=== PATIENT | female | born 1985 | race Caucasian/White ===

== ENCOUNTER 2016-09-09 11:16 | Emergency (ER) | payer OTHER ==
[~2016-09-09] VITALS: Ht 175.3 cm; Wt 113.4 kg
[~2016-09-09 11:16] MED LIST: METFORMIN HCL500 M3 PO; YASMIN 28 TABL1 EACH PO
--- NOTE | 2016-09-09 11:27 | ED NECK/BACK PAIN COMPLAINT ---
History of Present Illness General Chief Complaint: Low Back Pain/Injury Stated Complaint: LOWER BACK PAIN, X 3DAYS Vital Signs & Intake/Output Vital Signs & Intake/Output Vital Signs Date Time Temp Pulse Resp B/P Pulse O2 O2 Flow FiO2 Ox Delivery Rate 09/09 1123 97.3 97 20 122/82 97 Room Air Allergies Coded Allergies: shellfish derived (Severe, THROAT CLOSING 09/09/16) amoxicillin (Intermediate, HIVES 09/09/16) Reconcile Medications Ethinyl Estradiol/Drospirenone ([place] 28 Tablet) 1 EACH TABLET 1 TAB PO DAILY CONTROL (Reported) Metformin HCl 500 MG TABLET 1 TAB PO BID DIABETES (Reported) Triage Note: TRIAGE: PT TO ER C/C PAIN TO R/L LOW BACK. ONSET SATURDAY. CONSTANT SINCE ONSET. WAS SEEN AT [facility] YESTERDAY AND WAS GIVEN BACTRIM AND SKELAXIN. STATES PAIN IS WORSE TODAY. 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
--- NOTE | 2016-09-09 11:31 | ED NECK/BACK PAIN COMPLAINT ---
History of Present Illness General Chief Complaint: Low Back Pain/Injury Stated Complaint: LOWER BACK PAIN, X 3DAYS Source: patient, old records Exam Limitations: no limitations Vital Signs & Intake/Output Vital Signs & Intake/Output Vital Signs Date Time Temp Pulse Resp B/P Pulse O2 O2 Flow FiO2 Ox Delivery Rate 09/09 1319 98.0 89 14 124/74 100 Room Air 09/09 1238 99 Room Air ED Intake and Output 09/10 0000 09/09 1200 Intake Total 100 Output Total Balance 100 Intake, Oral 100 Patient 250 lb Weight Allergies Coded Allergies: shellfish derived (Severe, THROAT CLOSING 09/09/16) amoxicillin (Intermediate, HIVES 09/09/16) Reconcile Medications Cyclobenzaprine HCl 5 MG TABLET 1 TAB PO TIDPRN PRN pain Ethinyl Estradiol/Drospirenone ([place] 28 Tablet) 1 EACH TABLET 1 TAB PO DAILY CONTROL (Reported) Metformin HCl 500 MG TABLET 1 TAB PO BID DIABETES (Reported) Tylenol With Codeine (Tylenol With Codeine #3 Tablet) 300 MG-30 MG TABLET 1 TAB PO QHS PRN pain Triage Note: TRIAGE: PT TO ER C/C PAIN TO R/L LOW BACK. ONSET SATURDAY. CONSTANT SINCE ONSET. WAS SEEN AT [facility] YESTERDAY AND WAS GIVEN BACTRIM AND SKELAXIN. STATES PAIN IS WORSE TODAY. Triage Nurses Notes Reviewed? yes Onset: Gradual Duration: day(s): (3), intermittent Timing: recent history Quality/Severity: mild, moderate, aching Location: paraspinous muscles Radiation: none Method of Injury: unknown Loss of Consciousness: no loss of consciousness Modifying Factors: movement, rest Associated Symptoms: denies : No Patient currently breastfeeds: No HPI: 31-year-old female history of diabetes presents emergency room complaining of a 3 day history of sudden onset bilateral left greater than right lower back pain sharp 6 out of 10. She states the pain is worse with change in position. The pain is nonradiating she denies any numbness or tingling in her legs. No abdominal pain. The patient was seen by an urgent care yesterday at which time they diagnosed her with a kidney infection. She was sent home with Bactrim and Skelaxin. The patient states that she has had frequent urinary and kidney infections in the past and that this does not feel similar. There is no recent trauma or fall. No urinary or bowel incontinence patient denies chance of . Her last menstrual cycle was 3 weeks ago. The patient states she took one dose of the Skelaxin last night. She is not taken any Tylenol or Motrin for pain. (NEFTALI DE LEON) Past History Travel History Traveled to [place] past 21 day No Medical History Any Pertinent Medical History? 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 No (NEFTALI DE LEON) Review of Systems Review of Systems Constitutional: Reports: see HPI. All Other Systems: Reviewed and Negative Comments Review of systems: See HPI, All other systems negative. Constitutional, no chills no fever, no malaise HEENT: no sore throat no congestion, no ear pain Cardiovascular: No chest pain , no palpitation Skin, no rashes, no change in skin Respiratory: No dyspnea no cough no sputum GI: No nausea no vomiting, no diarrhea, no bloating/constipation : No dysuria No hematuria, no frequency Muscle skeletal: No joint pain, no joint swelling, back pain, no neck pain, Neurologic: No numbness no headache Psych: No stress Heme/endocrine: No bruising no bleeding Immunology: No lymphadenopathy (NEFTALI DE LEON) Physical Exam Physical Exam General Appearance: well developed/nourished, no apparent distress, alert, awake , comfortable Neck: normal inspection, supple, full range of motion Comments: Well-developed well-nourished person in no acute distress HEENT: Normal EENT exam; PERRL, EOMI, HEAD is atraumatic. moist mucous membranes. Neck: Supple, normal range of motion without pain or tenderness Back: There is left-sided paralumbar muscle tenderness palpation no midline tenderness, no CVA tenderness. Full range of motion Cardiovascular: Regular rate and rhythms no murmurs rubs Respiratory: No respiratory distress. Patient speaking in full complete sentences. Breath sounds clear to auscultation bilaterally: NO W/R/R Abdomen: Soft, nontender nondistended, no appreciable organomegaly. Normal bowel sounds. No rebound/guarding, Extremity: No edema, full range of motion of extremities, 5 out of 5 strength noted to bilateral upper and lower extremities positive straight leg raise the left lower extremity Neuro: Alert oriented x3, motor sensory normal, There were no obvious focal neurologic abnormalities. Skin: No appreciable rash on exposed skin, skin is warm and dry. Psych: Mood and affect is normal, memory and judgment is normal. (NEFTALI DE LEON) Progress Differential Diagnosis: cauda equina syn, herniated disc, myofascial strain, pyelo/UTI, sciatica, spinal cord inj, T/L spine injury, ureterolithiasis, , ECTOPIC Plan of Care: Laboratory Tests 09/09/16 1226: Urinalysis LIGHT H, Urine Color YEL, Urine Clarity HAZY H, Urine pH 6.0, Ur Specific [place] >= 1.030, Urine Protein NEG, Urine Ketones NEG, Urine Nitrite NEG, Urine Bilirubin NEG, Urine Urobilinogen 0.2, Ur Leukocyte Esterase MOD H, Ur Microscopic SEDIMENT EXAMINED, Urine RBC RARE, Urine WBC 25-50 H, Ur Epithelial Cells MOD H, Urine Bacteria MANY H, Urine Mucus FEW, Urine Hemoglobin TRACE-INTACT, Urine Glucose NEG, Urine Test NEGATIVE Discussed the patient plan of care need for supportive care rest heating pad prescription for Tylenol with Codeine Flexeril provided. I discussed the patient the side effects of these medications and to take these only at nighttime as needed as these will make her drowsy advised ibuprofen Tylenol during the day follow-up with her primary care physician this week patient clinically appears well I answered all their questions a comfortable plan cleared for discharge (NEFTALI DE LEON) Departure Departure Disposition: HOME OR SELF CARE Condition: Stable Clinical Impression Primary Impression: Lumbar strain Referrals: CLIVE ORTIZ,DUDLEY Perdomo Additional Instructions: Rest interchange ice and heat as needed. Interchange ibuprofen and Tylenol during the day for pain every 4-6 hours. Tylenol with Codeine Flexeril as needed for breakthrough pain, use caution as these medications make you drowsy. No driving or drinking alcohol while taking. These prescriptions were sent to your pharmacy Departure Forms: Customer Survey General Discharge Information Prescriptions: Current Visit Scripts Tylenol With Codeine (Tylenol With Codeine #3 Tablet) 1 TAB PO QHS PRN pain #7 TAB Cyclobenzaprine HCl 1 TAB PO TIDPRN PRN pain #12 TAB (NEFTALI DE LEON) PA/ADJUNCT TRAINER Co-Sign Statement Statement: ED Attending supervision documentation- [] I saw and evaluated the patient. I have also reviewed all the pertinent lab results and diagnostic results. I agree with the findings and the plan of care as documented in the PA's/ADJUNCT TRAINER's documentation. [X] I have reviewed the ED Record and agree with the PA's/ADJUNCT TRAINER's documentation. [] Additions or exceptions (if any) to the PAs/ADJUNCT TRAINER's note and plan are summarized below: [] (LETTY ORTIZ,BOYD)
[2016-09-09] MEDS ORDERED: TYLENOL WITH C1 EACH PO (13:05)
[2016-09-09] MEDS ORDERED: CYCLOBENZAPRINE5 M2 PO (13:05)
[2016-09-09 13:19] VITALS: BP 124/74
== END 2016-09-09 13:20 ==
LOC: ERH 11:16
DX: S39.012A Strain of muscle, fascia and tendon of lower back, initial encounter (principal); X58.XXXA Exposure to other specified factors, initial encounter
CPT/HCPCS: 81001; 81025

== ENCOUNTER 2016-09-28 12:45 | Emergency (ER) | payer OTHER ==
[~2016-09-28] VITALS: Ht 175.3 cm; Wt 111.6 kg
[~2016-09-28 12:45] MED LIST changes: +CYCLOBENZAPRINE5 M2 PO; +TYLENOL WITH C1 EACH PO
--- NOTE | 2016-09-28 13:33 | ED GI/GU/ABDOMINAL COMPLAINT ---
History of Present Illness General Chief Complaint: Abdominal Pain/Flank Pain Stated Complaint: R SIDE ABD PAIN, R/O APPENDICITIS Source: patient Exam Limitations: no limitations Vital Signs & Intake/Output Vital Signs & Intake/Output Vital Signs Date Time Temp Pulse Resp B/P Pulse O2 O2 Flow FiO2 Ox Delivery Rate 09/28 1732 100 Room Air 09/28 1519 97.9 74 20 128/74 98 Room Air 09/28 1252 97.6 88 18 136/92 98 Room Air Allergies Coded Allergies: shellfish derived (Severe, THROAT CLOSING 09/09/16) amoxicillin (Intermediate, HIVES 09/09/16) oxycodone (GI DISTRESS 09/28/16) Reconcile Medications Ethinyl Estradiol/Drospirenone ([place] 28 Tablet) 0.03 MG-3 MG TABLET 1 TAB PO QPM BC (Reported) Metformin HCl 500 MG TABLET 1 TAB PO BID DIABETES (Reported) Metronidazole 500 MG TABLET 1 TAB PO BID ANTIBIOTIC, INFECTION (Reported) Triage Note: 31 YEAR OLD FEMALE SENT TO ER BY HER PMD DUE TO COMPLAINTS OF RUQ ABD PAIN THAT STARTED LAST PM AND LOW PELVIC PRESSURE AND LOW BACK PAIN FOR THE PAST WEEK. WAS SEEN BY OB YESTERDAY AND WAS TOLD THAT SHE HAD CYST ON HER OVARIES AFTER SHE HAD VAGINAL US. ALSO STATES THAT SHE HAS BEEN ON FLAGYL SINCE LAST SATURDAY FOR VAGINAL BACTERIAL INFECTION SINCE LAST SATURDAY. LMP WAS 3 WEEKS AGO, STATES THAT SHE ALSO HAS BEEN HAVING URINARY SYMPTOMS, STATES THAT SHE HAS PRESSURE AFTER SHE URINATES, URINE IS DARK AND HAS A LOT OF BACK PAIN. Triage Nurses Notes Reviewed? yes ? N Is pt currently ? No HPI: This patient is a 31-year-old female with past medical history including diabetes and PCOS who presented to the emergency department today for evaluation of lower abdominal pain. The patient reported that she was seen here in the emergency department approximately 3 weeks ago with back pain and urinary symptoms. She was started on a 3 day course of Bactrim and then followed up with her primary care physician who put her on prednisone for her back pain. She developed pelvic pain shortly after and saw her PROFILE SHAPER OPERATOR who diagnosed her with bacterial vaginosis. She was put on Flagyl, her last dose is scheduled for tomorrow. The patient reported that she has continued to have some mild pelvic pain and her urinary symptoms seemed to be worsening again. She reported urinary frequency, the sensation of not emptying her bladder fully, and dark brown urine. She denied any burning. She reported that she is having increasing lower back pain. She saw a new PROFILE SHAPER OPERATOR who recently did an ultrasound and told her that her ovarian cysts seemed to be, "crystallizing." She is currently on control. The patient reported that she saw her primary care physician this morning and elicited pain in her right lower quadrant with palpation. She denied any pain when she is sitting still. She denied any nausea or vomiting. No constipation or diarrhea. She denied any chills. She did report a fever as high as 100.3F over the last couple of days. Patient reported that her daughter him a "fell on my stomach last night." She reported that after that time that is when she started to have abdominal pain. (ALIVIA RUIZ PA-C) Past History Travel History Traveled to [place] past 21 day No Medical History Any Pertinent Medical History? 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 No (ALIVIA RUIZ PA-C) Review of Systems Review of Systems Constitutional: Reports: see HPI. EENTM: Reports: no symptoms. Respiratory: Reports: no symptoms. Cardiovascular: Reports: no symptoms. GI: Reports: see HPI. Genitourinary: Reports: see HPI. Musculoskeletal: Reports: see HPI. Skin: Reports: no symptoms. Neurological/Psychological: Reports: no symptoms. All Other Systems: Reviewed and Negative (ALIVIA RUIZ PA-C) Physical Exam Physical Exam Gastrointestinal: normal bowel sounds, soft, no organomegaly, nondistended. Obese. Tenderness to palpation in the right lower quadrant. Negative Rovsing sign negative psoas sign. Negative Weaver sign. No rebound or guarding. No masses appreciated Comments: Well-developed well-nourished person in no acute distress HEENT: Normal EENT exam, head normocephalic, moist mucous membranes Neck: Supple with no lymphadenopathy Back: Normal gait. Normal inspection. Bilateral CVA tenderness. No midline tenderness Cardiovascular: Regular rate and rhythm with no murmurs, rubs, or gallops Respiratory: No respiratory distress. Speaking in full sentences Extremity: Normal and equal pulses Neuro: Alert oriented x3, motor sensory normal, cranial nerves II through XII grossly intact. Skin: No appreciable rash on exposed skin, skin is warm and dry. Psych: Mood and affect is normal, memory and judgment is normal. Core Measures ACS in differential dx? No Severe Sepsis Present: No Septic Shock Present: No (JOSEPH DOMINGO,ALIVIA) Progress Differential Diagnosis: AAA, AMI, appendicitis, biliary colic, bowel obstruction , colon cancer, cholecystitis, diverticulitis, ectopic , endometritis, gastritis, hepatitis, ischemic bowel, inflamm bowel dis, intrauterine , kidney stone, ovarian cyst, ovarian torsion, PID/cervicitis, perforated viscous, threatened AB, UTI/pyelo, PCOS Plan of Care: Orders Procedure Date/time Status CULTURE,URINE 09/28 1333 Active URINE 09/28 1333 Complete LIPASE 09/28 1333 Complete HIGH SENSITIVITY CRP 09/28 1333 Complete DIRECT BILIRUBIN 09/28 1333 Complete COMPREHENSIVE METABOLIC PANEL 09/28 1333 Complete AMYLASE 09/28 1333 Complete URINALYSIS 09/28 1257 Complete CBC WITHOUT DIFFERENTIAL 09/28 1257 Complete Laboratory Tests 09/28/16 1430: Urine Test NEGATIVE 09/28/16 1430: Anion Gap 11, Estimated GFR > 60, BUN/Creatinine Ratio 15.0, Glucose 101 H, Calcium 9.7, Total Bilirubin 0.5, Direct Bilirubin 0.3, AST 56 H, ALT 64 H, Alkaline Phosphatase 57, C-React Prot High Sens 12.8 H, Total Protein 7.7, Albumin 4.2, Globulin 3.5, Albumin/Globulin Ratio 1.2, Amylase 45, Lipase 144, CBC w Diff NO MAN DIFF REQ, RBC 4.45, MCV 89.1, MCH 29.3, RDW 13.4, MPV 7.4, Gran % 64.0, Lymphocytes % 26.7, Monocytes % 7.1, Eosinophils % 1.9, Basophils % 0.3, Absolute Granulocytes 5.4, Absolute Lymphocytes 2.3, Absolute Monocytes 0.6 , Absolute Eosinophils 0.2, Absolute Basophils 0, PUBS MCHC 32.8 L, Urine Color YEL, Urine Clarity HAZY H, Urine pH 6.0, Ur Specific [place] 1.020, Urine Protein NEG, Urine Ketones NEG, Urine Nitrite NEG, Urine Bilirubin NEG, Urine Urobilinogen 0.2, Ur Leukocyte Esterase SMALL H, Ur Microscopic SEDIMENT EXAMINED, Urine RBC RARE, Urine WBC 5-10 H, Ur Epithelial Cells MOD H, Urine Bacteria FEW H, Urine Hemoglobin NEG, Urine Glucose NEG 09/28/16 1257: Sodium Cancelled, Potassium Cancelled, Chloride Cancelled, Carbon Dioxide Cancelled, Anion Gap Cancelled, BUN Cancelled, Creatinine Cancelled, BUN/ Creatinine Ratio Cancelled, Glucose Cancelled, Calcium Cancelled, Total Bilirubin Cancelled, AST Cancelled, ALT Cancelled, Alkaline Phosphatase Cancelled, Total Protein Cancelled, Albumin Cancelled, Globulin Cancelled, Albumin/Globulin Ratio Cancelled Microbiology 09/28 1430 URINE ROUT: Urine Culture - RECD Diagnostic Imaging: Viewed by Me: CT Scan, Ultrasound. Discussed w/RAD: CT Scan, Ultrasound. Radiology Impression: PATIENT: ANGELLA LY PRESENT AGE: 31 PATIENT ACCOUNT NO: [id number] : 84 LOCATION: [facility] ORDERING PHYSICIAN: ALIVIA RUIZ PA-C SERVICE DATE: 09/28/161520 EXAM TYPE: CAT - CT ABD & PELVIS W/O IV CONTRAS EXAMINATION: CT ABDOMEN AND PELVIS WITHOUT CONTRAST CLINICAL INFORMATION: Right lower quadrant abdominal pain. Rule out appendicitis. COMPARISON: CT abdomen and pelvis of 02/09/2009. TECHNIQUE: Multidetector volumetric imaging was performed from the superior aspect of the liver through the pubic symphysis. Sagittal and coronal reformatted images were obtained on the technologist's workstation. DLP: 1001.04 mGy-cm FINDINGS: LUNG BASES: The visualized lung bases are unremarkable. LIVER, GALLBLADDER, AND BILIARY TREE: The liver is normal in size and shape. There is marked diffuse low attenuation of the liver parenchyma consistent with steatosis. No focal lesion is noted in the liver, within the limits of noncontrast study and presence of steatosis. No biliary ductal dilatation. The gallbladder is surgically absent. PANCREAS: Unremarkable. SPLEEN: Unremarkable. A 1.6 cm splenule anterior to the spleen is again noted. ADRENAL GLANDS: Unremarkable. KIDNEYS AND URETERS: The kidneys are normal in size, shape, and attenuation. No hydronephrosis, hydroureter, or calculi seen. No perinephric stranding. BLADDER: Underdistended, however, unremarkable. GASTROINTESTINAL TRACT: The appendix is normal. Mild diverticulosis of the sigmoid colon and distal descending colon. No evidence of acute diverticulitis. The colon is normal in caliber. No evidence of colonic wall thickening or pericolonic fat stranding. The small-bowel loops are unremarkable. The stomach is grossly unremarkable. PERITONEAL CAVITY: No evidence of free intraperitoneal air or fluid. No inflammatory changes or nodularity are seen in the omentum and mesentery. ABDOMINAL WALL: No significant hernia is appreciated. LYMPH NODES: No evidence of pathologically enlarged lymph nodes. VASCULAR: Unremarkable. PELVIC VISCERA: The uterus and ovaries are unremarkable. No adnexal mass. Small air in the vagina is likely external in origin. There is a hypodense lesion in the lower vagina on the left measuring 1.6 cm (series 2 image 107 of 107), most probably represents a Bartholin duct cyst. OSSEOUS STRUCTURES: Unremarkable. IMPRESSION: 1. Normal appendix. 2. No acute or other significant abnormality is identified to explain patient's symptoms. 3. Marked diffuse hepatic steatosis. 4. A 1.6 cm hypodense lesion in the left lower vagina most likely representing a Bartholin's duct cyst. 5. Mild colonic diverticulosis without acute diverticulitis. Recommend clinical correlation. DICTATED BY: CHU WU MD DATE/TIME DICTATED:09/28/161547 SERVICES EXECUTIVE:LAZ DATE/TIME TRANSCRIBED:09/28/161547 CONFIDENTIAL, DO NOT COPY WITHOUT APPROPRIATE AUTHORIZATION. <Electronically signed in Other Vendor System> SIGNED BY: CHU WU MD 09/28/16 1629, PATIENT: NAGELLA LY PRESENT AGE: 31 PATIENT ACCOUNT NO: [id number] : 84 LOCATION: [facility] ORDERING PHYSICIAN: ALIVIA RUIZ PA-C SERVICE DATE: 09/28/16 EXAM TYPE: US - US-TRANSVAGINAL EXAMINATION: US TRANSVAGINAL CLINICAL INFORMATION: Evaluate for ovarian cyst rupture. Pelvic pain COMPARISON: CT of the abdomen and pelvis performed same day TECHNIQUE: Transabdominal and tendons vaginal ultrasound of the pelvis FINDINGS: Uterus: 6.2 x 4.2 x 4 point centimeters. Cervical length cannot be measured as the full length was not clearly visualized. Endometrial thickness 1 cm. Total uterine volume 56 mL No uterine masses. However there was a small amount of fluid present within the endometrial canal as well as within the cervix Right ovary: 2.6 x 2.1 x 1.7 cm. Normal vascular flow Left ovary 2 x 1.6 x 2.3 cm. Simple cyst measuring 1.3 x 0.9 x 0.8 cm. Normal vascular flow Small nabothian cyst noted. Fluid in cul-de- sac: Trace fluid IMPRESSION: No evidence for ovarian torsion as vascular flow was within normal limits. Small amount of fluid within the endometrial canal and cervix. Small Left ovarian cyst. DICTATED BY: BERT BAUMAN MD DATE/TIME DICTATED:09/28/161646 SERVICES EXECUTIVE:LAZ DATE/TIME TRANSCRIBED:1646 CONFIDENTIAL, DO NOT COPY WITHOUT APPROPRIATE AUTHORIZATION. < Electronically signed in Other Vendor System> SIGNED BY: BERT BAUMAN MD 09/28/16 1707 Initial ED EKG: none (ALIVIA RUIZ PA-C) Departure Departure Disposition: HOME OR SELF CARE Condition: Stable Clinical Impression Primary Impression: Abdominal pain Qualifiers: Abdominal location: generalized Qualified Code: R10.84 - Generalized abdominal pain Referrals: MAXIM ORTIZ,SOHAIL (PCP/Family) Additional Instructions: You may take [id number] Motrin or Tylenol for pain. Please rest and stay hydrated. Please follow up with both your PROFILE SHAPER OPERATOR and/or primary care physician. Return for any worsening symptoms or concerns. Departure Forms: Customer Survey General Discharge Information (ALIVIA RUIZ PA-C) PA/PLANNING MANAGER Co-Sign Statement Statement: ED Attending supervision documentation- [] I saw and evaluated the patient. I have also reviewed all the pertinent lab results and diagnostic results. I agree with the findings and the plan of care as documented in the PA's/PLANNING MANAGER's documentation. [X] I have reviewed the ED Record and agree with the PA's/PLANNING MANAGER's documentation. [] Additions or exceptions (if any) to the PAs/PLANNING MANAGER's note and plan are summarized below: [] (LETTY ORTIZ,BOYD)
[2016-09-28] MEDS ORDERED: METRONIDAZOLE500 M1 PO (14:05)
[2016-09-28 14:45] LABS: ABSOLUTE BASOPHIL COUNT 0 /CUMM (0.0-0.2); ABSOLUTE EOSINOPHIL COUNT 0.2 /CUMM (0.0-0.7); ABSOLUTE GRANULOCYTE CT 5.4 /CUMM (1.4-6.5); ABSOLUTE LYMPH COUNT 2.3 /CUMM (1.2-3.4); ABSOLUTE MONOCYTE COUNT 0.6 /CUMM (0.10-0.60); BASOPHIL % 0.3 % (0.0-2.0); EOSINOPHIL % 1.9 % (0-5); HEMATOCRIT 39.6 % (37-47); MEAN CORPUSCULAR HGB 29.3 PG (27.0-31.0); MEAN CORPUSCULAR HGB CONC 32.8 G/DL (33.0-37.0); MEAN CORPUSCULAR VOLUME 89.1 FL (81.0-99.0); MEAN PLATELET VOLUME 7.4 FL (7.4-10.4); PLATELET COUNT 268 /CUMM (130-400); RBC DISTRIBUTION WIDTH 13.4 % (11.5-14.5); RED BLOOD CELL CT 4.45 /CUMM (4.20-5.40); WHITE BLOOD CELL COUNT 8.5 /CUMM (4.8-10.8)
[2016-09-28 15:19] VITALS: BP 128/74
--- NOTE | 2016-09-28 16:29 | CT SCAN REPORT ---
EXAMINATION: CT ABDOMEN AND PELVIS WITHOUT CONTRAST CLINICAL INFORMATION: Right lower quadrant abdominal pain. Rule out appendicitis. COMPARISON: CT abdomen and pelvis of 02/09/2009. TECHNIQUE: Multidetector volumetric imaging was performed from the superior aspect of the liver through the pubic symphysis. Sagittal and coronal reformatted images were obtained on the technologist's workstation. DLP: 1001.04 mGy-cm FINDINGS: LUNG BASES: The visualized lung bases are unremarkable. LIVER, GALLBLADDER, AND BILIARY TREE: The liver is normal in size and shape. There is marked diffuse low attenuation of the liver parenchyma consistent with steatosis. No focal lesion is noted in the liver, within the limits of noncontrast study and presence of steatosis. No biliary ductal dilatation. The gallbladder is surgically absent. PANCREAS: Unremarkable. SPLEEN: Unremarkable. A 1.6 cm splenule anterior to the spleen is again noted. ADRENAL GLANDS: Unremarkable. KIDNEYS AND URETERS: The kidneys are normal in size, shape, and attenuation. No hydronephrosis, hydroureter, or calculi seen. No perinephric stranding. BLADDER: Underdistended, however, unremarkable. GASTROINTESTINAL TRACT: The appendix is normal. Mild diverticulosis of the sigmoid colon and distal descending colon. No evidence of acute diverticulitis. The colon is normal in caliber. No evidence of colonic wall thickening or pericolonic fat stranding. The small-bowel loops are unremarkable. The stomach is grossly unremarkable. PERITONEAL CAVITY: No evidence of free intraperitoneal air or fluid. No inflammatory changes or nodularity are seen in the omentum and mesentery. ABDOMINAL WALL: No significant hernia is appreciated. LYMPH NODES: No evidence of pathologically enlarged lymph nodes. VASCULAR: Unremarkable. PELVIC VISCERA: The uterus and ovaries are unremarkable. No adnexal mass. Small air in the vagina is likely external in origin. There is a hypodense lesion in the lower vagina on the left measuring 1.6 cm (series 2 image 107 of 107), most probably represents a Bartholin duct cyst. OSSEOUS STRUCTURES: Unremarkable. IMPRESSION: 1. Normal appendix. 2. No acute or other significant abnormality is identified to explain patient's symptoms. 3. Marked diffuse hepatic steatosis. 4. A 1.6 cm hypodense lesion in the left lower vagina most likely representing a Bartholin's duct cyst. 5. Mild colonic diverticulosis without acute diverticulitis. Recommend clinical correlation.
--- NOTE | 2016-09-28 17:04 | ULTRASOUND REPORT ---
EXAMINATION: US TRANSVAGINAL CLINICAL INFORMATION: Evaluate for ovarian cyst rupture. Pelvic pain COMPARISON: CT of the abdomen and pelvis performed same day TECHNIQUE: Transabdominal and tendons vaginal ultrasound of the pelvis FINDINGS: Uterus: 6.2 x 4.2 x 4 point centimeters. Cervical length cannot be measured as the full length was not clearly visualized. Endometrial thickness 1 cm. Total uterine volume 56 mL No uterine masses. However there was a small amount of fluid present within the endometrial canal as well as within the cervix Right ovary: 2.6 x 2.1 x 1.7 cm. Normal vascular flow Left ovary 2 x 1.6 x 2.3 cm. Simple cyst measuring 1.3 x 0.9 x 0.8 cm. Normal vascular flow Small nabothian cyst noted. Fluid in cul-de-sac: Trace fluid IMPRESSION: No evidence for ovarian torsion as vascular flow was within normal limits. Small amount of fluid within the endometrial canal and cervix. Small Left ovarian cyst.
== END 2016-09-28 17:34 ==
LOC: ERH 12:45
PROVIDERS: Emergency Medicine
DX: R10.31 Right lower quadrant pain (principal)
CPT/HCPCS: 74176; 81001; 81025; 87086

== ENCOUNTER 2017-10-26 13:38 | Emergency (ER) | payer OTHER ==
[~2017-10-26] VITALS: Ht 175.3 cm; Wt 117.0 kg
[~2017-10-26 13:38] MED LIST changes: +BENTYL10 M1 PO; +CIPRO500 M1 PO; +GLYBURIDE1.25 M1; +METRONIDAZOLE500 M1 PO; +ZOFRAN ODT4 M1 SL
[2017-10-26 13:49] VITALS: BP 125/87
[2017-10-26] MEDS ORDERED: CIPRO500 M1 PO (14:41)
[2017-10-26] MEDS ORDERED: BACTRIM DS TAB1 EACH PO (14:41)
--- NOTE | 2017-10-26 14:42 | ED SKIN/ALLERGY COMPLAINT ---
History of Present Illness General Chief Complaint: General Adult Stated Complaint: ?INFECTION LT BIG TOE Source: patient, family Exam Limitations: no limitations Vital Signs & Intake/Output Vital Signs & Intake/Output Vital Signs Date Time Temp Pulse Resp B/P B/P Pulse O2 O2 Flow FiO2 Mean Ox Delivery Rate 10/26 1349 96.4 93 18 125/87 98 Room Air Allergies Coded Allergies: shellfish derived (Severe, THROAT CLOSING 09/09/16) amoxicillin (Intermediate, HIVES 09/09/16) Penicillins (HIVES 01/31/17) oxycodone (GI DISTRESS 09/28/16) Reconcile Medications Ciprofloxacin HCl (Cipro) 500 MG TABLET 1 TAB PO BID CELLULITIS Ciprofloxacin HCl (Cipro) 500 MG TABLET 1 TAB PO BID uti Ethinyl Estradiol/Drospirenone ([place] 28 Tablet) 0.03 MG-3 MG TABLET 1 TAB PO QPM BC (Reported) Glyburide 1.25 MG TABLET DIABETES (Reported) Sulfamethoxazole/Trimethoprim (Bactrim Ds Tablet) 800 MG-160 MG TABLET 1 TAB PO BID CELLULITIS Triage Note: PT TO ER C/C LEFT GREAT TOE INFECTION X 1 WEEK S/P PEDICURE. HX NIDDM. AFEBRILE Triage Nurses Notes Reviewed? yes : No Patient currently breastfeeds: No HPI: 32F PMH T2DM with swelling, erythema, and drainage of the left great toe. She was in her usual state of health, went for a pedicure and foot bath over a week ago, then went on a cruise to [place] and the [facility]. While she was on her cruise, she noticed erythema and swelling on the left side of her left great toenail. After keeping it clean for a few days, pus was expressed from the swelling, after which the swelling decreased. Currently, she has mild erythema and swelling on her toe without any discharge. She feels no pain, and has intact sensation to her foot at baseline. She has no systemic symptoms. Past History Travel History Traveled to [place] past 21 day No Medical History Any Pertinent Medical History? 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 No Review of Systems Review of Systems Constitutional: Reports: no symptoms. EENTM: Reports: no symptoms. Respiratory: Reports: no symptoms. Cardiovascular: Reports: no symptoms. GI: Reports: no symptoms. Genitourinary: Reports: no symptoms. Musculoskeletal: Reports: no symptoms. Skin: Reports: no symptoms. Neurological/Psychological: Reports: no symptoms. Hematologic/Endocrine: Reports: no symptoms. Immunologic/Allergic: Reports: no symptoms. All Other Systems: Reviewed and Negative Physical Exam Physical Exam General Appearance: well developed/nourished, mild distress Head: atraumatic Eyes: Bilateral: normal appearance. Ears, Nose, Throat: normal pharynx, hearing grossly normal Neck: normal inspection, supple Respiratory: normal breath sounds Cardiovascular: regular rate/rhythm Gastrointestinal: soft, non-tender Back: normal inspection Extremities: normal inspection, normal range of motion, no edema Neurologic/Psych: awake, alert, oriented x 3, normal mood/affect Skin: Left great toe erythema and swelling without discharge, sensation and ROM intact Lymphatic: no anterior cervical francheska Progress Differential Diagnosis: abscess/cellulitis, allergic reaction, anaphylaxis, angioedema, asthma, contact dermatitis, drug reaction, erythema multiforme, lyme disease, meningitis/sepsis, piyriasis rosea, RMSF, scarlet fever, shingles, syphilis/gonococcemia, toxic shock syndrome, urticaria Plan of Care: No systemic symptoms, no further workup required. Will discharge on antibiotics and follow up with her PCP. Departure Departure Disposition: HOME OR SELF CARE Condition: Stable Clinical Impression Primary Impression: Cellulitis of great toe, left Referrals: Aida Monson APRN (PCP/Family) Additional Instructions: Follow up with your PCP. Keep the toe clean and dry. If you notice fever, chills, worsening swelling, any discharge, or any new or worsening symptoms, return to ER. Departure Forms: Customer Survey General Discharge Information Prescriptions: Current Visit Scripts Sulfamethoxazole/Trimethoprim (Bactrim Ds Tablet) 1 TAB PO BID #14 TAB Ciprofloxacin HCl (Cipro) 1 TAB PO BID #14 TAB
[2017-10-26] MEDS ORDERED: BACTROBAN15 GM TOP (21:59)
== END 2017-10-26 14:46 ==
LOC: ERH 13:38
DX: L03.032 Cellulitis of left toe (principal)

== ENCOUNTER 2017-10-26 20:42 | Emergency (ER) | payer OTHER ==
[~2017-10-26 20:42] MED LIST changes: +BACTRIM DS TAB1 EACH PO
--- NOTE | 2017-10-26 20:50 | ED SKIN/ALLERGY COMPLAINT ---
History of Present Illness General Chief Complaint: Allergy Symptoms Stated Complaint: "REACTION TO MEDICATION, HIVES TOUNGE SWOLLEN" Source: patient Exam Limitations: no limitations Vital Signs & Intake/Output Vital Signs & Intake/Output Vital Signs Date Time Temp Pulse Resp B/P B/P Pulse O2 O2 Flow FiO2 Mean Ox Delivery Rate 10/26 2225 98.4 75 16 114/71 99 Room Air 10/26 2104 Room Air 10/26 2104 97.4 81 18 125/80 98 Room Air Allergies Coded Allergies: shellfish derived (Severe, THROAT CLOSING 09/09/16) amoxicillin (Intermediate, HIVES 09/09/16) ciprofloxacin (From CIPRO) (Mild, GENERALIZED ITCHING 10/26/17) sulfamethoxazole (From BACTRIM) (Mild, ITCHING SKIN 10/26/17) trimethoprim (From BACTRIM) (Mild, ITCHING SKIN 10/26/17) Penicillins (HIVES 01/31/17) oxycodone (GI DISTRESS 09/28/16) Reconcile Medications Ciprofloxacin HCl (Cipro) 500 MG TABLET 1 TAB PO BID CELLULITIS Ciprofloxacin HCl (Cipro) 500 MG TABLET 1 TAB PO BID uti Ethinyl Estradiol/Drospirenone ([place] 28 Tablet) 0.03 MG-3 MG TABLET 1 TAB PO QPM BC (Reported) Glyburide 1.25 MG TABLET DIABETES (Reported) Mupirocin Calcium (Bactroban) 2 % CREAM..G. 1 BRANDIE TOP TID infection apply to affected area(s) x 7 days Sulfamethoxazole/Trimethoprim (Bactrim Ds Tablet) 800 MG-160 MG TABLET 1 TAB PO BID CELLULITIS Triage Nurses Notes Reviewed? yes Onset: Abrupt Duration: minute(s): Timing: single episode today Severity: mild, moderate Location: face Possible Factors: medications Modifying Factors: Improves With: antihistamine. Associated Symptoms: hives HPI: 32 yo woman h/o well controlled diabetes, presents with itchy facial rash, sensation of tongue swelling. This evening she took bactrim and cipro for a left hallux infection. Soon thereafter, she felt an itchy rash on her face, tongue swelling and mild wheeze. 911 called. Medics gave benadryl 50mg iv. She began to feel better. Past History Travel History Traveled to [place] past 21 day No Medical History Any Pertinent Medical History? 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 No Review of Systems Review of Systems Constitutional: Reports: no symptoms. EENTM: Reports: no symptoms. Respiratory: Reports: no symptoms. Cardiovascular: Reports: no symptoms. GI: Reports: no symptoms. Genitourinary: Reports: no symptoms. Musculoskeletal: Reports: no symptoms. Skin: Reports: no symptoms. Neurological/Psychological: Reports: no symptoms. Hematologic/Endocrine: Reports: no symptoms. Immunologic/Allergic: Reports: no symptoms. All Other Systems: Reviewed and Negative Physical Exam Physical Exam General Appearance: well developed/nourished, mild distress Head: atraumatic Eyes: Bilateral: normal appearance. Ears, Nose, Throat: normal pharynx Neck: normal inspection, supple, full range of motion Respiratory: normal breath sounds, chest non-tender, no respiratory distress, quiet respiration Cardiovascular: regular rate/rhythm Gastrointestinal: normal bowel sounds, soft, non-tender, no organomegaly Extremities: left hallux with minimal paronychia Neurologic/Psych: no motor/sensory deficits, awake, alert, oriented x 3 Skin: intact, normal color, warm/dry Progress Differential Diagnosis: allergic reaction Plan of Care: Current Medications Sig/Enrrique Start time Last Medication Dose Stop Time Status Admin Methylprednisolone 60 MG ONCE ONE 10/26 2229 UNVr (Solu Medrol) 10/26 2230 pt given benadryl 50mg iv x 1 Departure Departure Disposition: HOME OR SELF CARE Condition: Stable Clinical Impression Primary Impression: Allergic reaction Referrals: Aida Monson APRN (PCP/Family) Departure Forms: Customer Survey General Discharge Information Prescriptions: Current Visit Scripts Mupirocin Calcium (Bactroban) 1 BRANDIE TOP TID #30 GM apply to affected area(s) x 7 days Comments 10/26/17, 22:19... PT FEELING BETTER, notes still a "funny feeling" on left side do tongue... will give one dose of solumedrol... advocated [id number] benadryl for the next 2-3 days, and close follow up.
[2017-10-26] MEDS ORDERED: BACTROBAN15 GM TOP (21:59)
[2017-10-26 22:26] VITALS: BP 114/71
== END 2017-10-26 22:28 ==
LOC: ERH 20:42
DX: T36.91XA Poisoning by unspecified systemic antibiotic, accidental (unintentional), initial encounter (principal)
CPT/HCPCS: 96374; J2930

== ENCOUNTER 2018-01-29 01:41 | Inpatient (IN) | payer OTHER ==
[~2018-01-29] VITALS: Ht 175.3 cm; Wt 113.2 kg
[~2018-01-29 01:41] MED LIST changes: +BACTROBAN15 GM TOP
--- NOTE | 2018-01-29 09:48 | Admission Core Measures ---
Acute Coronary Syndrome (CM) ACS Core Measures Acute Coronary Syndrome Diagnosis No Congestive Heart Failure (NEW) CHF Core Measures Congestive Heart Failure Diagnosis No Cerebrovascular Accident CVA Core Measures CVA/TIA Diagnosis No Venous Thromboembolism VTE Core Anam (View Protocol) VTE Risk Factors Surgery No Mechanical VTE Prophylaxis d/t N/A MechProphylax Ordered No VTE Pharm Prophylaxis d/t NA PharmProphylax ordered Problem List As ranked by this Provider includes Assessment & Plan 1. Morbid obesity 2. S/P laparoscopic sleeve gastrectomy HOME MEDS Home Med List Ciprofloxacin HCl (Cipro) 500 MG TABLET 1 TAB PO BID CELLULITIS Ciprofloxacin HCl (Cipro) 500 MG TABLET 1 TAB PO BID uti Ethinyl Estradiol/Drospirenone ([place] 28 Tablet) 0.03 MG-3 MG TABLET 1 TAB PO QPM BC (Reported) Mupirocin Calcium (Bactroban) 2 % CREAM..G. 1 BRANDIE TOP TID infection Sulfamethoxazole/Trimethoprim (Bactrim Ds Tablet) 800 MG-160 MG TABLET 1 TAB PO BID CELLULITIS
--- NOTE | 2018-01-29 14:33 | Admission Core Measures ---
Acute Coronary Syndrome (CM) ACS Core Measures Acute Coronary Syndrome Diagnosis No Congestive Heart Failure (NEW) CHF Core Measures Congestive Heart Failure Diagnosis No Cerebrovascular Accident CVA Core Measures CVA/TIA Diagnosis No Venous Thromboembolism VTE Core Anam (View Protocol) VTE Risk Factors Surgery No Mechanical VTE Prophylaxis d/t N/A MechProphylax Ordered No VTE Pharm Prophylaxis d/t NA PharmProphylax ordered Problem List As ranked by this Provider includes Assessment & Plan 1. S/P laparoscopic sleeve gastrectomy 2. Morbid obesity HOME MEDS Home Med List Ciprofloxacin HCl (Cipro) 500 MG TABLET 1 TAB PO BID CELLULITIS Ciprofloxacin HCl (Cipro) 500 MG TABLET 1 TAB PO BID uti Ethinyl Estradiol/Drospirenone ([place] 28 Tablet) 0.03 MG-3 MG TABLET 1 TAB PO QPM BC (Reported) Mupirocin Calcium (Bactroban) 2 % CREAM..G. 1 BRANDIE TOP TID infection Sulfamethoxazole/Trimethoprim (Bactrim Ds Tablet) 800 MG-160 MG TABLET 1 TAB PO BID CELLULITIS
--- NOTE | 2018-01-29 16:38 | Operative Report ---
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 After appropriate workup was completed I discussed with the patient the band, the sleeve, and the gastric bypass. The patient chose to undergo a sleeve gastrectomy. All risks including but not limited to bleeding, infection, leak, stricture, injury to surrounding bowel/esophagus/stomach/liver/spleen, long-term reflux, DVT/PE, and mortality of 07/999 patients were discussed in detail. The patient understood everything and decided to proceed. Operative/Procedure Note Note: The patient was brought to the operating room and placed on the operating room table in supine position. Venodyne stockings were placed and adequate general endotracheal anesthesia was obtained. The patient was prepped and draped in standard surgical fashion. Began the procedure by making a 2 cm transverse incision supraumbilically and slightly to the left of the midline. Then using a 12 mm clear Visiport and a 10 mm 0 laparoscope, the abdominal cavity was accessed. Great care was taken to go through the anterior rectus sheath, the posterior rectus sheath, and through the peritoneum. Once we entered the peritoneum the abdominal cavity was insufflated to 15 mmHg. Upon initial examination no obvious gross pathology was seen. Accessory trocars were placed, 5 mm in the epigastrium for the Dion liver retractor. The retractor was inserted and the liver was retracted anteriorly exposing the hiatus, small hiatal hernia was seen. 5 mm ports were placed in the right and left upper quadrant, a 5 mm left lateral port, and a 15 mm right lateral port. Began the procedure by mobilizing the greater curvature of the stomach approximately 7 cm from the pylorus. Once the retrogastric space was reached the whole greater curvature was mobilized maintaining hemostasis using Harmonic scalpel. Full hiatal dissection was performed, a small hiatal hernia was seen. The left norman of the diaphragm was dissected away from the esophagus, reducing the hernia sac. We then brought our attention to the right norman, the pars flaccida was opened until the right norman was clearly visualized. Following this the right norman was dissected away from the esophagus as well and the esophagus was circumferentially dissected out of the chest. At the completion of dissection the esophagus was in the abdominal cavity for about 2-3 cm. The esophagus was retracted anteriorly and the hiatus was closed using 2-0 Tycron suture. At the completion of the closure there was ample room for the esophagus and the hiatus was adequately closed. Posterior adhesions were taken down using Harmonic scalpel as well. Once the stomach was adequately mobilized a 38 Thai bougie was inserted and placed along the lesser curvature of the stomach. Once the bougie was in the appropriate position we began creating our sleeve, two 60 mm black staple loads with seamguard followed by two 60 mm purple staple loads with seamguard and finished with a 45 mm purple load with seamguard as well. Great care was taken to leave ample room at the incisura angularis, to prevent any twisting or kinking of the sleeve, to stay lateral to the esophagogastric fat pad, and to do a full fundal excision. At the completion of the staple line the staple line was examined, it appeared intact and no obvious bleeding was noted. The bougie was removed, the sleeve was lying nicely without any twisting or kinking. The resected stomach was removed through the right lateral port site. The port and the left upper quadrant were irrigated until clear. All ports were removed under direct visualization no obvious bleeding was noted. The 15 mm port site fascia was closed using 0 Vicryl suture. The skin was closed using 4- 0 Monocryl. Steri-Strips and dressings were placed. The patient was successfully extubated and transferred to the recovery room in stable condition. The patient tolerated the procedure well with no complications. Findings: 3-4 cm hiatal hernia, 38 Fr bougie CC: Aida Monson APRN
[2018-01-29] MEDS ORDERED: PROTONIX40 M3 PO (16:51)
[2018-01-29] MEDS ORDERED: HYCET 7.5 MG-3473 ML PO (16:51)
--- NOTE | 2018-01-29 16:51 | Patient Discharge Instructions ---
Discharge Instructions General Discharge Information You were seen/treated for: Morbid Obesity (BMI 38), DM, PCOS, GERD, Hiatal hernia You had these procedures: Surgery Date: 01/29/18 Name of Procedure: Laparoscopic Sleeve Gastrectomy, Laparoscopic hiatal hernia repair Watch for these problems: fever>101.3, increased pain, redness/swelling/drainage, dizziness, shortness of breath, chest pains No bath, but you may shower: Yes Other wound care: ok to shower. leave white steri strips in place. keep incisions clean & dry. Diet Continue normal diet: No Recommended Diet: Bariatric Additional DIET Information: weekly bariatric stage diet advancement as tolerated, as directed Activity Full Activity/No Limits: No Activity Self Limited: Yes Pounds, do NOT lift more than: 10 Other activity limits: no heavy lifting. no strenuous activity. Acute Coronary Syndrome Inclusion Criteria At DC or during hospital stay patient has or had the following: ACS DIAGNOSIS No Discharge Core Measures Meds if any: Prescribed or Continued at Discharge Meds if any: NOT Prescribed or Continued at Discharge Congestive Heart Failure Inclusion Criteria At DC or during hospital stay patient has or had the following: CHF DIAGNOSIS No Discharge Core Measures Meds if any: Prescribed or Continued at Discharge Meds if any: NOT Prescribed or Continued at Discharge Cerebrovascular accident Inclusion Criteria At DC or during hospital stay patient has or had the following: CVA/TIA Diagnosis No Discharge Core Measures Meds if any: Prescribed or Continued at Discharge Meds if any: NOT Prescribed or Continued at Discharge Venous thromboembolism Inclusion Criteria VTE Diagnosis No VTE Type NONE VTE Confirmed by (Test) NONE Discharge Core Measures - Per Current guidelines, there needs to be overlap - treatment for the first 5 days of Warfarin therapy. - If discharged on Warfarin prior to 5 days of - overlap therapy, the patient will need to be - assessed for post discharge needs including - *Post discharge parental anticoagulation - *Warfarin and/or parental anticoagulation education - *Follow up date to check INR post discharge At least 5 days overlap therapy as Inpatient No Meds if any: Prescribed or Continued at Discharge Note: Overlap Therapy is Warfarin and Anticoagulant Meds if any: NOT Prescribed or Continued at Discharge
--- NOTE | 2018-01-29 16:55 | Surg Short-stay <48hrs Dis Sum ---
Visit Information Visit Dates Admission Date: 01/29/18 Discharge Date: 01/31/18 Surgical Short Stay DC Summary Admission Diagnosis: Morbid Obesity (BMI 38), DM, PCOS, GERD, Hiatal hernia Final Diagnosis: Morbid Obesity (BMI 38), DM, PCOS, GERD, Hiatal hernia Procedure(s): Surgery Date: 01/29/18 Name of Procedure: Laparoscopic Sleeve Gastrectomy, Laparoscopic hiatal hernia repair Summary/Significant Findings: Electively scheduled laparoscopic sleeve gastrectomy, laparoscopic hiatal hernia repair by on 01/29/18 for history of morbid obesity (BMI 38), DM, PCOS, GERD, and hiatal hernia. Started on stage 1 bariatric diet post-operatively. Upper gi study done on post-op day#1 ruled out leak and obstruction. Pain control transitioned from iv to oral medication as able. Accuchecks monitored post-operatively. She had nausea post-operatively that continued through her hospitalization, but she was tolerating stage 1 prior to discharge. She requested a prescription for zofran upon discharge to home. No indication for lovenox at the time of discharge to home, according to her pre-operative risk assessment. Condition at Discharge: stable Discharge Disposition: home or self care Discharge instructions provided to patient/family: Yes Post discharge follow-up plan: one week follow up with no lovenox indicated Copies to: Aida Monson APRN
[2018-01-29 18:15] VITALS: BP 132/80
--- NOTE | 2018-01-29 19:48 | PN- Bariatrics ---
Subjective Subjective: POC feeling ok, some upper abd pain, very sleepy tolerating sips of stg1 diet, no n /v. no oob yet. due to void postop. no cp/sob. Objective Vital Signs and I&Os Vital Signs Date Time Temp Pulse Resp B/P B/P Pulse O2 O2 Flow FiO2 Mean Ox Delivery Rate 01/29 1815 97.9 70 20 132/80 95 Room Air 01/29 1815 95 Room Air 01/29 1815 95 Room Air Physical Exam: gen- nad [id number] pulm- ctab abd- obese, soft, incisions dressed- scant bloody staining on middle dressings, ttp epigastric ext- calves soft nt, alps on bl Assessment/Plan Assessment/Plan A- POD0 sp lap gastric sleeve, with appropriate postop pain, otherwise stable. P- stg1 diet, then npo p mn for possible upper gi study in am dvt ppx am labs i&os prn pain meds oob, ambulate dc planning Core Measures Venous Thromboembolism VTE Risk Factors Surgery No Mechanical VTE Prophylaxis d/t N/A MechProphylax Ordered No VTE Pharm Prophylaxis d/t NA PharmProphylax ordered
[2018-01-29 22:43] VITALS: BP 146/92; BP 154/92
[2018-01-30 07:04] VITALS: BP 125/84
--- NOTE | 2018-01-30 07:04 | PN- Student ---
See Addendum Mónica Cuellar 01/30/18 0653: Subjective Subjective: No acute overnight events. Pt was oob yesterday two times and did have some diziness while walking. She complains of incisional pain, which is increased when she coughs. She has voided, still no BM, flatus. Nausea with drinking fluids. No vomiting. She was able to eat some of her meal last night but had pain with swallowing. Pt is NPO this morning for UGI series. Objective Objective: Vital Signs Date Time Temp Pulse Resp B/P B/P Pulse O2 O2 Flow FiO2 Mean Ox Delivery Rate 01/30 0000 96 Room Air 01/29 2243 98.0 84 20 154/92 96 Room Air 01/29 2200 96 Room Air 01/29 2000 95 Room Air 01/30 1956 Room Air 01/29 1815 97.9 70 20 132/80 95 Room Air 01/29 181 95 Room Air 01/29 181 95 Room Air Last 24 Hours I&Os 01/30 0801/30 0000 01/29 1600 Intake Total 900 965 Output Total 400 1600 Balance 500 -635 Intake, IV 900 875 Intake, Oral 90 Number 0 Bowel Movements Output, Urine 400 1600 Patient 250 lb Weight Weight Bed scale Measurement Method Laboratory Tests 01/29/18 1310: Urine Test NEGATIVE Orders Procedure Date/time Status Nothing by Mouth 01/30 B Active XRY-UPPER GI SERIES 01/31 800 Active MAGNESIUM 01/30 600 Active GLUCOSE 01/30 600 Active CBC WITHOUT DIFFERENTIAL 01/30 600 Active BASIC ELECTROLYTES PLUS BUN&CR 01/30 600 Active MISSING MEDICATION FORM 01/30 UNK Active Bariatric Diet - Stage 1 01/29 D Complete THERAPIST ORDERS 01/29 1959 Complete RT: Evaluation 01/29 1955 Active Weight 01/29 183 Complete Vital Signs 01/29 183 Complete Teach/Educate 01/29 1837 Active Pain Treatment and Response 01/29 1837 Active Nutritional Intake, Monitor 01/29 1837 Active Isolation 01/29 1837 Active Intake & Output 01/29 183 Complete Patient Care Conference 01/29 1837 Active Activity/Ambulation 01/29 183 Complete TRC EVALUATION (GEN) 01/29 183 Complete Pathway - chart 01/29 1835 Active Admit to inpatient 01/29 1835 Active Patient Data 01/29 1835 Active Wound Care/Dressing 01/29 183 Active VTE Mechanical Prophylaxis 01/29 183 Active Vital Signs 01/29 183 Active Nursing RT Care 01/29 183 Active Nursing Misc 01/29 183 Active Intake & Output 01/29 183 Active FingerStick- Glucose 01/29 1835 Active Activity/Ambulation 01/29 183 Active NUTRITIONAL CONSULT 01/29 183 Active PATHOLOGY SPECIMEN 01/29 1615 Active TRANSFER ORDERS 01/29 1420 Complete URINE 01/29 1310 Complete Code Status 01/29 0945 Active MISSING MEDICATION FORM 01/29 UNK Active Physical Exam: Gen: O&Ax3, laying in bed comfortably, in no apparent distress Lung: CTA Heart: S1 and S2 normal. RRR Abd: one incision site in RLQ with blood underneath intact dressing, rest of dressing clear,dry,intact. Abd diffusely tender to palpation. Normoactive bs, soft, nt/nd Ext: warm,dry, no edema Assessment/Plan Assessment: This is a 32 yo female with a PMHx of obesity, DM that is POD 1 s/p lap sleeve gastrectomy and hiatal hernia repair. Plan: -NPO this morning for possible UGI series this morning -Pt is oob and voiding, no enriquez -C/w IV fluids -Perioperative abx complete -Heparin sq for dvt ppx -Zofran prn for nausea -Protonix for gi ppx -Scheduled tylenol,dilaudid prn for pain, morphine for breakthrough pain -No BM or flatus, encourage PO intake after study this morning -AM labs still pending Ni Gibbs 01/30/18 0715: Assessment/Plan Plan: Agree with above student note Pt is pod 1 s/p sleeve gastrectomy - she was unable to tolerate her stage one diet due to nausea - no nausea this morning but she feels that she can't try liquids yet. No vomiting, no flatus or bm. Voiding. On exam her abdominal pain is appropriate post op pain, abdomen is soft Will plan to go ahead with UGI this morning - reevaluate after study for diet/ discharge, follow up labs
[2018-01-30 10:17] LABS: ABSOLUTE BASOPHIL COUNT 0 /CUMM (0.0-0.2); ABSOLUTE EOSINOPHIL COUNT 0 /CUMM (0.0-0.7); ABSOLUTE GRANULOCYTE CT 10.9 /CUMM (1.4-6.5); ABSOLUTE LYMPH COUNT 1.4 /CUMM (1.2-3.4); ABSOLUTE MONOCYTE COUNT 0.8 /CUMM (0.10-0.60); BASOPHIL % 0.2 % (0.0-2.0); EOSINOPHIL % 0 % (0-5); HEMATOCRIT 35.9 % (37-47); MEAN CORPUSCULAR HGB 30.6 PG (27.0-31.0); MEAN CORPUSCULAR HGB CONC 34.1 G/DL (33.0-37.0); MEAN CORPUSCULAR VOLUME 89.6 FL (81.0-99.0); MEAN PLATELET VOLUME 7.9 FL (7.4-10.4); PLATELET COUNT 255 /CUMM (130-400); RBC DISTRIBUTION WIDTH 12.6 % (11.5-14.5); RED BLOOD CELL CT 4.01 /CUMM (4.20-5.40)
[2018-01-30 10:25] LABS: WHITE BLOOD CELL COUNT 13.1 /CUMM (4.8-10.8)
--- NOTE | 2018-01-30 12:24 | RADIOLOGY REPORT ---
EXAMINATION: FL UPPER GI SERIES CLINICAL INFORMATION: 32-year-old female, status post sleeve gastrectomy, postop day 1. For follow-up. COMPARISON: None TECHNIQUE: A single contrast upper GI series with fluoroscopy and spot imaging was performed. The patient ingested 30 mL of Gastrografin without difficulty and was evaluated in the upright and recumbent positions. 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 Contrast was seen to flow freely from the esophagus across the GE junction into the residual stomach. No evidence of any leak is noted. There is free flow of contrast across the pylorus into the duodenum. FLUOROSCOPY TIME: 3.0 minutes. NUMBER OF IMAGES: 9 series. IMPRESSION: Expected postsurgical changes of sleeve gastrectomy is noted without any leak or obstruction.
[2018-01-30 14:04] VITALS: BP 115/52
[2018-01-30 21:47] VITALS: BP 110/70
[2018-01-31 00:27] VITALS: BP 122/80
[2018-01-31 06:49] VITALS: BP 110/60
--- NOTE | 2018-01-31 07:33 | PN- Student ---
Levi Cuellarley 01/31/18 0726: Subjective Subjective: No acute overnight events. Pt has been oob frequently. Pain well controlled. She has voided,passed flatus, and had 2 episodes of diarrhea yesterday. The pt did have some nausea last night, w/o vomiting. She is tolerating her stage 1 diet and she should be ready for discharge today. Objective Objective: Physical Exam: Gen: O&Ax3, laying in bed comfortably, in no apparent distress Lung: CTA Heart: S1 and S2 normal. RRR Abd: one incision site in RLQ with blood underneath intact dressing, rest of dressing clear,dry,intact. Abd tender in upper quadrants. Normoactive bs, soft, nt/nd Ext: warm,dry, no edema Results Results: Vital Signs Date Time Temp Pulse Resp B/P B/P Pulse O2 O2 Flow FiO2 Mean Ox Delivery Rate 01/31 0722 62 01/31 0649 99.0 50 20 110/60 97 / 0600 94 Room Air / 0027 98.3 65 20 122/80 96 / 2200 94 Room Air 08/ 2147 97.6 57 16 110/70 94 Room Air 08/ 1404 97.7 62 20 115/52 96 Room Air 08/02 1400 95 Room Air / 0800 95 Room Air 08/ 0704 97.5 55 20 125/84 96 Room Air 08/ 0000 96 Room Air 08/ 2243 98.0 84 20 154/92 96 Room Air 08/ 2200 96 Room Air 08/ 2000 95 Room Air 08/ 1956 Room Air / 1815 97.9 70 20 132/80 95 Room Air 08/ 1815 95 Room Air 08/ 1815 95 Room Air Last 24 Hours I&Os 01/31 0800 08/03 0000 08/02 1600 Intake Total 500 565 920 Output Total 400 600 750 Balance 100 -35 170 Intake, IV 500 385 860 Intake, Oral 180 60 Number 1 0 Bowel Movements Output, Urine 400 600 750 Laboratory Tests 01/30/18 0940: Anion Gap 8, Estimated GFR > 60, BUN/Creatinine Ratio 6.0 L, Glucose 137 H, Magnesium 1.6, CBC w Diff NO MAN DIFF REQ, RBC 4.01 L, MCV 89.6, MCH 30.6, MCHC 34.1, RDW 12.6, MPV 7.9, Gran % 83.0 H, Lymphocytes % 10.8 L, Monocytes % 6.0, Eosinophils % 0, Basophils % 0.2, Absolute Granulocytes 10.9 H, Absolute Lymphocytes 1.4, Absolute Monocytes 0.8 H, Absolute Eosinophils 0, Absolute Basophils 0 Orders Procedure Date/time Status Bariatric Diet - Stage 1 01/30 L Complete Bariatric Diet - Stage 1 01/30 D Active Nothing by Mouth 01/30 B Complete MAGNESIUM 01/30 600 Complete GLUCOSE 01/30 600 Complete CBC WITHOUT DIFFERENTIAL 01/30 600 Complete BASIC ELECTROLYTES PLUS BUN&CR 01/30 600 Complete MISSING MEDICATION FORM 01/30 UNK Active Bariatric Diet - Stage 1 01/29 D Complete THERAPIST ORDERS 01/29 1959 Complete RT: Evaluation 01/29 195 Active Weight 01/29 183 Complete Vital Signs 01/29 183 Complete Teach/Educate 01/29 1837 Active Pain Treatment and Response 01/29 183 Active Nutritional Intake, Monitor 01/29 183 Active Isolation 01/29 183 Active Intake & Output 01/29 183 Complete Patient Care Conference 01/29 183 Active Activity/Ambulation 01/29 183 Complete TRC EVALUATION (GEN) 01/29 183 Complete Pathway - chart 01/29 183 Active Admit to inpatient 01/29 183 Active Patient Data 01/29 183 Active Wound Care/Dressing 01/29 183 Active VTE Mechanical Prophylaxis 01/29 183 Active Vital Signs 01/29 183 Active Nursing RT Care 01/29 183 Active Nursing Misc 01/29 1835 Active Intake & Output 01/29 1835 Active FingerStick- Glucose 01/29 183 Active Activity/Ambulation 01/29 183 Active NUTRITIONAL CONSULT 01/29 183 Active PATHOLOGY SPECIMEN 01/29 1615 Complete TRANSFER ORDERS 01/29 1420 Complete URINE 01/29 1310 Complete Code Status 01/29 0945 Active INCENTIVE SPIROMETRY TRX CHG 01/29 UNK Complete MISSING MEDICATION FORM 01/29 UNK Active Laboratory Tests 01/30/18 0940: Anion Gap 8, Estimated GFR > 60, BUN/Creatinine Ratio 6.0 L, Glucose 137 H, Magnesium 1.6, CBC w Diff NO MAN DIFF REQ, RBC 4.01 L, MCV 89.6, MCH 30.6, MCHC 34.1, RDW 12.6, MPV 7.9, Gran % 83.0 H, Lymphocytes % 10.8 L, Monocytes % 6.0, Eosinophils % 0, Basophils % 0.2, Absolute Granulocytes 10.9 H, Absolute Lymphocytes 1.4, Absolute Monocytes 0.8 H, Absolute Eosinophils 0, Absolute Basophils 0 01/29/18 1310: Urine Test NEGATIVE Assessment/Plan Assessment: This is a 32 yo female with a PMHx of obesity, DM that is POD 2 s/p lap sleeve gastrectomy and hiatal hernia repair. Plan: -Pt is somewhat tolerating stg 1 diet but does have nausea -UGI series yesterday showed no leak/obstruction -Pt is oob and voiding, no enriquez -Passed BM, flatus -D/c IV fluids today -POD 2- will change dressings today -Perioperative abx complete -Heparin sq for dvt ppx -C/w pain management -Ready for discharge today, discuss with pt Ni Ron 01/31/18 0352: Assessment/Plan Plan: agree with above MANOHAR-S note encouraged oral intake anti-emetics prn (script for zofran sent to retail pharmacy) continue iv fluids until tolerating stage 1 diet oob/ambulation encouraged hep sc - dvt ppx d/c home today will d/w
[2018-01-31] MEDS ORDERED: ZOFRAN4 M2 PO (07:34)
== END 2018-01-31 13:50 | DRG 403 ==
LOC: SDA 01:41 → 2NB 01:41 → ENRESERV 16:59 → ENTRNSPT 17:59 → EDTRNSPT 18:08 → EDTRNSPTSTS 18:08 → 2NB 18:16 → CMPTRNSPT 18:31 → ENPENDDIS 01-31 08:31 → 2NB 01-31 13:50
PROVIDERS: Physician Assistant
PROC: 0DB64Z3 Excision of Stomach, Percutaneous Endoscopic Approach, Vertical (ICD-10-PCS; principal; 2018-01-29)
PROC: 0BQT4ZZ Repair Diaphragm, Percutaneous Endoscopic Approach (ICD-10-PCS; principal; 2018-01-29)
PROC: 3E0T3BZ Introduction of Anesthetic Agent into Peripheral Nerves and Plexi, Percutaneous Approach (ICD-10-PCS; 2018-01-29)
DX: E66.01 Morbid (severe) obesity due to excess calories (principal); Z68.38 Body mass index [BMI] 38.0-38.9, adult; K44.9 Diaphragmatic hernia without obstruction or gangrene; K76.0 Fatty (change of) liver, not elsewhere classified; E11.9 Type 2 diabetes mellitus without complications; K21.9 Gastro-esophageal reflux disease without esophagitis; E28.2 Polycystic ovarian syndrome; R11.0 Nausea; G47.33 Obstructive sleep apnea (adult) (pediatric); Z79.84 Long term (current) use of oral hypoglycemic drugs; Z88.1 Allergy status to other antibiotic agents; Z90.49 Acquired absence of other specified parts of digestive tract; Z88.5 Allergy status to narcotic agent; Z91.013 Allergy to seafood
CPT/HCPCS: 2NBSP; 36415; 36592; 71046; 74240; 81025; 82436; 93005; 93010; J0131; J1100; J1644; J2405; J3490; J7042